=== PATIENT | male | born 1960 | race Caucasian/White ===

== ENCOUNTER 2016-07-22 15:46 | Inpatient (IN) | payer OTHER ==
[2016-07-22 15:55] VITALS: BMI 29.5
[2016-07-22 16:36] LABS: BASOPHIL 0.6 % (0-2.0); EOSINOPHIL 1.5 % (0-4.5); MCH 29.9 pg (25.7-33.7); MCHC 34.1 g/dl (32.0-35.9); MEAN CELL VOLUME 87.7 fl (80-96); MEAN PLT VOLUME 7.4 fl (7.5-11.1); NEUTROPHILS 69.5 % (42.8-82.8); PLATELET COUNT 196 K/MM3 (134-434); RDW 14.4 % (11.9-15.9); WHITE BLOOD COUNT 5.6 K/mm3 (4.0-10.0)
[2016-07-22 16:49] LABS: INR 1.09 (0.82-1.09)
[2016-07-22 16:51] LABS: ACTIVATED PTT 30.7 SECONDS (26.9-34.4)
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
[2016-07-22 17:11] LABS: ALBUMIN 3.7 g/dl (3.4-5.0); ANION GAP 11 (8-16); BILIRUBIN,TOTAL 0.6 mg/dL (0.2-1.0); CALCIUM 8.8 mg/dL (8.5-10.1); CO2 27 mmol/L (21-32); GLUCOSE,RANDOM 102 mg/dL (74-106); SGOT/AST 15 U/L (15-37); SGPT/ALT 34 U/L (12-78); TOT PROT 7.3 g/dl (6.4-8.2)
[2016-07-22 17:13] LABS: ALK PHOS 92 U/L (45-117); TROPONIN I < 0.02 ng/ml (0.00-0.05)
[2016-07-22 21:48] LABS: URINE APPEARANCE CLEAR; URINE BILIRUBIN NEGATIVE (NEGATIVE); URINE BLOOD NEGATIVE (NEGATIVE); URINE COLOR YELLOW; URINE GLUCOSE (UA) NEGATIVE (NEGATIVE); URINE KETONE TRACE (NEGATIVE); URINE LEUK ESTERASE NEGATIVE (NEGATIVE); URINE NITRITE NEGATIVE (NEGATIVE); URINE PROTEIN NEGATIVE (NEGATIVE); URINE UROBILINOGEN NEGATIVE E.U./dl (0.2-1.0)
[2016-07-22 22:03] LABS: URINE MARIJUANA THC NEGATIVE ng/ml (CUTOFF=50)
[2016-07-23] MEDS ORDERED: OXYCODONE/APAP 5/325MG COMBO TABLET PO PRN (00:08)
[2016-07-23] MEDS ORDERED: LORAZEPAM CARPU-JECT 2 MG/ML DISP.SYRIN IVPUSH PRN (00:18)
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
[2016-07-23] MEDS: oxyCODONE HCL 5 MG TABLET PO PRN ×3 (00:54→14:57)
[2016-07-23] MEDS: ACETAMINOPHEN 325 MG TABLET (FP) PO PRN ×2 (00:56→14:58)
[2016-07-23] MEDS: GABAPENTIN 100 MG CAPSULE (FP) PO SCH ×3 (06:15→21:21)
[2016-07-23 07:33] LABS: BASOPHIL 1.2 % (0-2.0); EOSINOPHIL 4.2 % (0-4.5); MCHC 34.3 g/dl (32.0-35.9); MEAN CELL VOLUME 87.4 fl (80-96); MEAN PLT VOLUME 7.2 fl (7.5-11.1); PLATELET COUNT 171 K/MM3 (134-434); RDW 14.4 % (11.9-15.9); WHITE BLOOD COUNT 4.1 K/mm3 (4.0-10.0)
[2016-07-23 07:54] LABS: ALBUMIN 3.5 g/dl (3.4-5.0); ANION GAP 7 (8-16); CHOLESTEROL 214 mg/dL (50-200); CO2 31 mmol/L (21-32); CREATININE 0.8 mg/dL (0.7-1.3); GLUCOSE,RANDOM 87 mg/dL (74-106); LDL CHOLESTEROL (ONLY SJRH) 156 mg/dL (5-100); MAGNESIUM 2.2 mg/dL (1.8-2.4); SGOT/AST 14 U/L (15-37); SGPT/ALT 30 U/L (12-78)
[2016-07-23 07:56] LABS: ALK PHOS 93 U/L (45-117); BILIRUBIN,TOTAL 0.6 mg/dL (0.2-1.0)
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
[2016-07-23 10:07] LABS: TROPONIN I < 0.02 ng/ml (0.00-0.05)
[2016-07-23] MEDS: OXcarbazepine 300 MG TABLET (UD) PO SCH ×2 (10:24→21:21)
[2016-07-23] MEDS: DIVALPROEX SODIUM 250 MG TABLET E.C. (FP) PO SCH ×2 (10:25→21:22)
[2016-07-23] MEDS: HEPARIN NA (PORCINE) 5,000 UNITS/ML 1ML VIAL SQ SCH ×2 (10:25→21:21)
--- NOTE | 2016-07-23 18:23 | EKG ---
Test Reason : Blood Pressure : / mmHG Vent. Rate : 078 BPM Atrial Rate : 078 BPM P-R Int : 174 ms QRS Dur : 080 ms QT Int : 376 ms P-R-T Axes : 033 -20 -05 degrees QTc Int : 428 ms NORMAL SINUS RHYTHM NORMAL ECG WHEN COMPARED WITH ECG OF 22-JUL-2016 16:06, NO SIGNIFICANT CHANGE WAS FOUND Confirmed by OSMAN ALVARADO MD ([id number]) on 07/23/2016 6:22:39 PM Referred By: Rogelio DOMÍNGUEZ Confirmed By:OSMAN ALVARADO MD
[2016-07-23] MEDS ORDERED: PT OWN MED DRAWER 7, Y5N ONE (21:04)
[2016-07-23] MEDS: MELATONIN 5 MG TABLETS PO SCH (21:22)
[2016-07-23] MEDS: oxyCODONE HCL 5 MG TABLET PO SCH (21:23)
[2016-07-23] MEDS ORDERED: oxyCODONE HCL 5 MG TABLET PO SCH (22:00)
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
[2016-07-24] MEDS: GABAPENTIN 100 MG CAPSULE (FP) PO SCH ×3 (05:04→21:10)
--- NOTE | 2016-07-24 08:28 | PN ---
Progress Note, Physician Chief Complaint: cp History of Present Illness: ongoing, fairly constant pain chest/neck/arm; worse if tries to sit up in bed/get out of bed; no acute sob, diaph no syncope - Current Medication List Current Medications: Active Medications Acetaminophen (Tylenol -) 325 mg PO BID PRN PRN Reason: PAIN Last Admin: 07/23/16 14:58 Dose: 325 mg Divalproex Sodium (Depakote -) 750 mg PO BID [facility] Last Admin: 07/23/16 21:22 Dose: 750 mg Gabapentin (Neurontin -) 200 mg PO TID [facility] Last Admin: 07/24/16 05:04 Dose: 200 mg Heparin Sodium (Porcine) (Heparin -) 5,000 unit SQ BID [facility] Last Admin: 07/23/16 21:21 Dose: 5,000 unit Melatonin (Melatonin) 10 mg PO HS [facility] Last Admin: 07/23/16 21:22 Dose: 10 mg Oxcarbazepine (Trileptal -) 900 mg PO BID [facility] Last Admin: 07/23/16 21:21 Dose: 900 mg Oxycodone HCl (Roxicodone -) 10 mg PO BID [facility] Last Admin: 07/23/16 21:23 Dose: 10 mg - Objective Vital Signs: Vital Signs Temperature 98.0 F 07/24/16 06:00 Pulse Rate 72 07/24/16 06:00 Respiratory Rate 20 07/24/16 06:00 Blood Pressure 115/84 07/24/16 06:00 O2 Sat by Pulse Oximetry (%) 97 07/23/16 21:00 Constitutional: Yes: No Distress, Calm Eyes: No: Sclera Icterus HENT: No: Nasal Congestion Cardiovascular: Yes: Regular Rate and Rhythm, S1, S2, Other (PMI non diplaced). No: Gallop, Murmur Respiratory: Yes: CTA Bilaterally. No: Accessory Muscle Use, Rales, Wheezes Gastrointestinal: Yes: Normal Bowel Sounds, Soft. No: Tenderness Musculoskeletal: Yes: Other (No kyphosis) Extremities: No: Cold Edema: No Integumentary: No: Jaundice Neurological: Yes: Alert, Oriented (x3) Psychiatric: No: Agitated Labs: CBC, BMP 07/23/16 06:05 07/23/16 06:05 INR, PTT INR 1.09 (0.82-1.09) 07/22/16 16:30 - ....Imaging EKG: Other (tele: NSR) Assessment/Plan chest pain, sob, diaphoresis: -nonexertional sx's x 48 hrs, now admits to positiona./use exacarbation -EKG here with no changes vs 2014 prior, and 2 serial troponins negative -CT images reviewed by me and there are no coronary calcifications present -ekg and troponins rules out acute plaque rupture; and if he had chronic, severe coronary stenosis at age 55 he would almost certainly have identifiable atherosclerotic calcifications on CT -therefore, strongly suspect m-skel strain sec to tonic-clonic sz's, or other m- skel etiology; -however also with episode of acute diaphoresis and sob sx's on DOA, strong family hx, abnl baseline ekg--persantine nuclear to r/o underlying CAD -echo -CTA negative for PE -VS's stable, sx's not suggestive of acute aorta pathology -mosaic interstitial pattern on CT ? c/w small airways dz vs hypersensitivity pneumonitis or --defer to dr soliman +/- pulm consult if indicated HPL: -LDL 156, not on statin -his ASCVD risk score is on the low side, though family history concerning -no identifiable coronary atherosclerotic calcifications on CT chest -notable family history present -defer discussion of R/B of primary prevn statin vs healthy lifestyle treatment to outpt f/u h/o PE: -1 provoked, 1 unprovoked -suspect hypercoagulable state -however in light of his neurologist feeling his uncontrolled tonic-clonic sz's represent prohibitive risk for head trauma on AC, would not change prior plan -pt and melba advised once his sz's are well controlled, i suggest they revisit hypercoag genetic testing and ? 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
[2016-07-24] MEDS: HEPARIN NA (PORCINE) 5,000 UNITS/ML 1ML VIAL SQ SCH ×2 (10:02→21:11)
[2016-07-24] MEDS: DIVALPROEX SODIUM 250 MG TABLET E.C. (FP) PO SCH ×2 (10:02→21:14)
[2016-07-24] MEDS: OXcarbazepine 300 MG TABLET (UD) PO SCH ×2 (10:03→21:14)
[2016-07-24] MEDS: oxyCODONE HCL 5 MG TABLET PO SCH ×2 (10:03→21:12)
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
[2016-07-24] MEDS ORDERED: PT OWN MED DRAWER 7, Y5N ONE (21:06)
[2016-07-24] MEDS: MELATONIN 5 MG TABLETS PO SCH (21:14)
[2016-07-24] MEDS ORDERED: LORAZEPAM CARPU-JECT 2 MG/ML DISP.SYRIN ONE (22:40)
[2016-07-24] MEDS ORDERED: LORAZEPAM CARPU-JECT 2 MG/ML DISP.SYRIN IVPUSH ONE ×2 (22:40→23:30)
[2016-07-24] MEDS ORDERED: VALPROATE SODIUM 500 MG/5 ML VIAL IVPB ONE (22:55)
--- NOTE | 2016-07-24 22:56 | RAPID ---
Physical Examination Vital Signs: Vital Signs Temperature 98.1 F 07/24/16 21:57 Pulse Rate 75 07/24/16 21:57 Respiratory Rate 20 07/24/16 21:57 Blood Pressure 147/93 07/24/16 21:57 O2 Sat by Pulse Oximetry (%) 96 07/24/16 19:38 Labs: CBC, BMP 07/23/16 06:05 07/23/16 06:05 Rapid Response - Rapid Response Assessment: Rapid response called for seizure. Seizure lasted for approximately 1 minute as was noted by at bedside. Upon arrival pt was still seizing and continued to seize for approximately 30 more seconds. Ativan 2mg IV was given and pt was no longer seizing. Pt was able to speak after seizing stopped and was in no acute distress s/p seizure. PE Gen: AAO, speaking in full sentences HEENT: NC/AT C/V: RRR, s1 s2 + Resp: CTA b/l, no wheezing Ext: no edema noted Neuro: following basic commands, lethargic s/p seizure and stat ativan A/P -Ativan 2mg IV stat ordered -CBCD, BMP, lactic acid ordered -Dr. Chance paged and called back immediately - increase depakote to 1000 po bid and to give one dose of iv depakote 250 mg at this time. Labs s/p seizure are as noted: CBC, BMP 07/24/16 22:30 07/24/16 23:00 Lactic Acid: 1.448
--- NOTE | 2016-07-24 22:57 | RAPID ---
Physical Examination Vital Signs: Vital Signs Temperature 98.1 F 07/24/16 21:57 Pulse Rate 75 07/24/16 21:57 Respiratory Rate 20 07/24/16 21:57 Blood Pressure 147/93 07/24/16 21:57 O2 Sat by Pulse Oximetry (%) 96 07/24/16 19:38 Findings/Remarks: Rapid Response called for Seizure [facility]. Actively seizing on arrival Vital Signs Period Temp Pulse Resp BP Sys/Cooper Pulse Ox Last 24 Hr 98.0 F-98.8 F 68-82 18-20 115-147/74-93 92-96 Ativan 2 given pt. stopped seizing Gen: Able to Speak full sentences Card: RRR S1, S2 RESP: CTAB ABD: BSX4 EXT: - C/C/E Neuro: CN II-XII intact, Able to follow commands A/P.) Sezure - Pt. had just recieved AED's 1 hr prior - Repeat labs - S/P Ativan - Dr. Chance contacted- Depakote 250 IV X1 given and Depakote increased 1000 PO BID changes made - Primary to be notified by nurse Labs: CBC, BMP 07/23/16 06:05 07/23/16 06:05
[2016-07-24 23:18] LABS: BASOPHIL 1.3 % (0-2.0); EOSINOPHIL 3.7 % (0-4.5); MCH 30.4 pg (25.7-33.7); MCHC 34.9 g/dl (32.0-35.9); MEAN PLT VOLUME 7.3 fl (7.5-11.1); NEUTROPHILS 52.6 % (42.8-82.8); PLATELET COUNT 186 K/MM3 (134-434); RDW 14.1 % (11.9-15.9); WHITE BLOOD COUNT 4.3 K/mm3 (4.0-10.0)
[2016-07-24 23:44] LABS: CALCIUM 8.6 mg/dL (8.5-10.1)
[2016-07-24] MEDS ORDERED: LORAZEPAM CARPU-JECT 2 MG/ML DISP.SYRIN IVPUSH PRN (23:55)
[2016-07-25] MEDS: GABAPENTIN 100 MG CAPSULE (FP) PO SCH ×3 (05:27→21:18)
[2016-07-25] MEDS ORDERED: PT OWN MED DRAWER 7, Y5N ONE ×2 (09:33→21:10)
[2016-07-25] MEDS: DIVALPROEX SODIUM 500 MG TABLET E.C. PO SCH ×2 (09:52→21:30)
[2016-07-25] MEDS: HEPARIN NA (PORCINE) 5,000 UNITS/ML 1ML VIAL SQ SCH ×2 (09:53→21:18)
[2016-07-25] MEDS: oxyCODONE HCL 5 MG TABLET PO SCH ×2 (09:53→21:21)
[2016-07-25] MEDS: OXcarbazepine 300 MG TABLET (UD) PO SCH ×2 (09:54→21:19)
--- NOTE | 2016-07-25 11:14 | PN ---
Progress Note, Physician Chief Complaint: cp History of Present Illness: had seizure overnight, currently lethargic s/p ativan as well no cp at the moment, no sob, no palpit, no wheezing - Current Medication List Current Medications: Active Medications Acetaminophen (Tylenol -) 325 mg PO BID PRN PRN Reason: PAIN Last Admin: 07/23/16 14:58 Dose: 325 mg Divalproex Sodium (Depakote -) 1,000 mg PO BID [facility] Last Admin: 07/25/16 09:52 Dose: 1,000 mg Gabapentin (Neurontin -) 200 mg PO TID [facility] Last Admin: 07/25/16 05:27 Dose: Not Given Heparin Sodium (Porcine) (Heparin -) 5,000 unit SQ BID [facility] Last Admin: 07/25/16 09:53 Dose: 5,000 unit Lorazepam (Ativan Injection -) 4 mg IVPUSH ONCE PRN PRN Reason: status epilepticus Melatonin (Melatonin) 10 mg PO HS [facility] Last Admin: 07/24/16 21:14 Dose: 10 mg Oxcarbazepine (Trileptal -) 900 mg PO BID [facility] Last Admin: 07/25/16 09:54 Dose: 900 mg Oxycodone HCl (Roxicodone -) 10 mg PO BID [facility] Last Admin: 07/25/16 09:53 Dose: 10 mg - Objective Vital Signs: Vital Signs Temperature 97.5 F L 07/25/16 06:00 Pulse Rate 64 07/25/16 06:00 Respiratory Rate 20 07/25/16 06:00 Blood Pressure 116/86 07/25/16 06:00 O2 Sat by Pulse Oximetry (%) 96 07/24/16 19:38 Constitutional: Yes: Well Nourished, No Distress, Calm Cardiovascular: Yes: Regular Rate and Rhythm, S1, S2. No: Gallop, Murmur Respiratory: Yes: Regular, CTA Bilaterally. No: Accessory Muscle Use, Rales, Wheezes Extremities: No: Cold Edema: No Neurological: Yes: Alert. No: Seizure Psychiatric: No: Agitated Labs: CBC, BMP 07/24/16 22:30 07/24/16 23:00 INR, PTT INR 1.09 (0.82-1.09) 07/22/16 16:30 - ....Imaging EKG: Other (tele: NSR) Assessment/Plan chest pain, sob, diaphoresis: -nonexertional sx's x 48 hrs, now admits to positiona./use exacarbation -EKG here with no changes vs 2014 prior, and 2 serial troponins negative -CT images reviewed by me and there are no coronary calcifications present -ekg and troponins rules out acute plaque rupture; and if he had chronic, severe coronary stenosis at age 55 he would almost certainly have identifiable atherosclerotic calcifications on CT -therefore, strongly suspect m-skel strain sec to tonic-clonic sz's, or other m- skel etiology; -however also with episode of acute diaphoresis and sob sx's on DOA, strong family hx, abnl baseline ekg -will do persantine nuclear to r/o underlying CAD once seizures are under control--note: given that his persistent cp x 48 hrs has clearly been shown not to represent ACS process, the nuclear stress test can be deferred for now -echo -CTA negative for PE -VS's stable, sx's not suggestive of acute aorta pathology -mosaic interstitial pattern on CT ? c/w small airways dz vs hypersensitivity pneumonitis or --defer to dr soliman +/- pulm consult if indicated HPL: -LDL 156, not on statin -his ASCVD risk score is on the low side, though family history concerning -no identifiable coronary atherosclerotic calcifications on CT chest -notable family history present -defer discussion of R/B of primary prevn statin vs healthy lifestyle treatment to outpt f/u h/o PE: -1 provoked, 1 unprovoked -suspect hypercoagulable state -however in light of his neurologist feeling his uncontrolled tonic-clonic sz's represent prohibitive risk for head trauma on AC, would not change prior plan -pt and melba advised once his sz's are well controlled, i suggest they revisit hypercoag genetic testing and ? 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
--- NOTE | 2016-07-25 12:40 | EKG ---
Test Reason : Blood Pressure : / mmHG Vent. Rate : 092 BPM Atrial Rate : 092 BPM P-R Int : 190 ms QRS Dur : 076 ms QT Int : 326 ms P-R-T Axes : 028 -22 -06 degrees QTc Int : 403 ms NORMAL SINUS RHYTHM NORMAL ECG WHEN COMPARED WITH ECG OF 27-JAN-2014 09:18, NO SIGNIFICANT CHANGE WAS FOUND Confirmed by POOJA JONES MD ([id number]) on 07/25/2016 12:40:09 PM Referred By: Confirmed By:POOJA JONES MD
[2016-07-25] MEDS ORDERED: LORAZEPAM CARPU-JECT 2 MG/ML DISP.SYRIN IVPUSH PRN (19:02)
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
--- NOTE | 2016-07-25 20:34 | PN ---
Progress Note (short form) - Note Progress Note: patient in room drowsy events of last night reviewed / patient sustained another seizure this afternoon and given ativan. reports chest pain now gone and less generalized pain off telemetry Vital Signs Period Temp Pulse Resp BP Sys/Cooper Pulse Ox Last 24 Hr 97.5 F-98.1 F 64-83 16-20 116-147/85-93 95 neck supple / no jvd heart reg S1/S2 lungs clear bilat abd soft non tender ext no edema / FROM Gait unsteady -- ?? medication induced will request PT evaluation medications adjusted by neuro recommendation from psych reviewed and will start Lexapro CBC, BMP 07/24/16 22:30 07/24/16 23:00 Active Medications Acetaminophen (Tylenol -) 325 mg PO BID PRN PRN Reason: PAIN Last Admin: 07/23/16 14:58 Dose: 325 mg Divalproex Sodium (Depakote -) 1,000 mg PO BID [facility] Last Admin: 07/25/16 09:52 Dose: 1,000 mg Escitalopram Oxalate (Lexapro -) 5 mg PO DAILY [facility] Gabapentin (Neurontin -) 200 mg PO TID [facility] Last Admin: 07/25/16 15:07 Dose: Not Given Heparin Sodium (Porcine) (Heparin -) 5,000 unit SQ BID [facility] Last Admin: 07/25/16 09:53 Dose: 5,000 unit Lacosamide (Vimpat -) 50 mg PO BID [facility] Lorazepam (Ativan Injection -) 1 mg IVPUSH ONCE PRN PRN Reason: status epilepticus Melatonin (Melatonin) 10 mg PO HS [facility] Last Admin: 07/24/16 21:14 Dose: 10 mg Oxcarbazepine (Trileptal -) 900 mg PO BID [facility] Last Admin: 07/25/16 09:54 Dose: 900 mg Oxycodone HCl (Roxicodone -) 10 mg PO BID [facility] Last Admin: 07/25/16 09:53 Dose: 10 mg ASSMT # PAIN BACK pain -- followed by Pain Mgmt / being re - evaluated for possible surgical approach Chest pain -- Now relieved which had persisted over 48hrs--all work up done has been Negative Will schedule Stress once seizure Dz controlled # Seizure DZ Uncontrolled - 2 events during hospital stay depakote increased and Vimpat added adjustment per Neurology # Depression appreciate psych input will start lexapro today # Hx of PE Partial work up to date -- due to seizure dz, a/c on hold -- will revisit once seizure dz is controlled # abnormal chest CT mosaic interstitial pattern on CT ? c/w small airways dz vs hypersensitivity pneumonitis will request Pulmonary opinion Problem List Problem List - Problems (1) Chest pain Code(s): R07.9 - CHEST PAIN, UNSPECIFIED Qualifiers: Chest pain type: unspecified Qualified Code(s): R07.9 - Chest pain, unspecified (2) Major depression Code(s): F32.9 - MAJOR DEPRESSIVE DISORDER, SINGLE EPISODE, UNSPECIFIED Qualifiers: Major depression recurrence: single episode Active/Remission status: currently active Major depression episode severity: moderate Qualified Code(s): F32.1 - Major depressive disorder, single episode, moderate (3) Seizure Code(s): R56.9 - UNSPECIFIED CONVULSIONS Qualifiers: Convulsion type: unspecified Qualified Code(s): R56.9 - Unspecified convulsions (4) Abnormal chest CT Code(s): R93.8 - ABNORMAL FINDINGS ON DIAGNOSTIC IMAGING OF BODY STRUCTURES
[2016-07-25] MEDS: ESCITALOPRAM OXALATE 10 MG TABLET (FP) PO SCH (21:18)
[2016-07-25] MEDS: LACOSAMIDE 50 MG TABLET PO SCH (21:19)
[2016-07-25] MEDS: MELATONIN 5 MG TABLETS PO SCH (21:20)
[2016-07-26] MEDS: GABAPENTIN 100 MG CAPSULE (FP) PO SCH ×3 (06:21→21:56)
[2016-07-26 08:33] LABS: BASOPHIL 0.8 % (0-2.0); EOSINOPHIL 3.9 % (0-4.5); MCHC 33.9 g/dl (32.0-35.9); MEAN CELL VOLUME 88.5 fl (80-96); MEAN PLT VOLUME 7.2 fl (7.5-11.1); NEUTROPHILS 54.8 % (42.8-82.8); PLATELET COUNT 164 K/MM3 (134-434); WHITE BLOOD COUNT 4.6 K/mm3 (4.0-10.0)
--- NOTE | 2016-07-26 09:19 | PN ---
Progress Note (short form) - Note Progress Note: Chief Complaint: cp S: no sob, cp, dizziness, no palpit, no wheezing. + word finding difficulties. Current Medications Acetaminophen (Tylenol -) 325 mg PO BID PRN PRN Reason: PAIN Last Admin: 07/23/16 14:58 Dose: 325 mg Divalproex Sodium (Depakote -) 1,000 mg PO BID [facility] Last Admin: 07/25/16 21:30 Dose: 1,000 mg Escitalopram Oxalate (Lexapro -) 5 mg PO DAILY [facility] Last Admin: 07/25/16 21:18 Dose: 5 mg Gabapentin (Neurontin -) 200 mg PO TID [facility] Last Admin: 07/26/16 06:21 Dose: 200 mg Heparin Sodium (Porcine) (Heparin -) 5,000 unit SQ BID [facility] Last Admin: 07/25/16 21:18 Dose: 5,000 unit Lacosamide (Vimpat -) 50 mg PO BID [facility] Last Admin: 07/25/16 21:19 Dose: 50 mg Lorazepam (Ativan Injection -) 1 mg IVPUSH ONCE PRN PRN Reason: status epilepticus Melatonin (Melatonin) 10 mg PO HS [facility] Last Admin: 07/25/16 21:20 Dose: 10 mg Oxcarbazepine (Trileptal -) 900 mg PO BID [facility] Last Admin: 07/25/16 21:19 Dose: 900 mg Oxycodone HCl (Roxicodone -) 10 mg PO BID [facility] Last Admin: 07/25/16 21:21 Dose: 10 mg Vital Signs - 24 hr 07/25/16 07/25/16 07/25/16 10:00 14:42 17:34 Temperature 97.6 F 98.1 F 97.5 F L Pulse Rate 72 83 69 Respiratory 18 16 18 Rate Blood Pressure 124/92 120/92 128/91 O2 Sat by Pulse Oximetry (%) 07/25/16 07/25/16 07/26/16 21:00 22:00 05:52 Temperature 97.9 F 97.6 F Pulse Rate 73 73 Respiratory 16 16 Rate Blood Pressure 128/92 127/78 O2 Sat by Pulse 94 L Oximetry (%) Intake & Output 07/24/16 07/25/16 07/26/16 07/27/16 07:59 07:59 07:59 07:59 Intake Total 258 425 3947 Balance 474 848 8207 Weight 210 lb 4 oz Constitutional: Yes: Well Nourished, No Distress, Calm Cardiovascular: Yes: Regular Rate and Rhythm, S1, S2. No: Gallop, Murmur Respiratory: Yes: Regular, CTA Bilaterally. No: Accessory Muscle Use, Rales, Wheezes Extremities: No: Cold Edema: No Neurological: Yes: Alert. No: Seizure Psychiatric: No: Agitated Labs: CBC, BMP 07/26/16 06:55 07/26/16 06:55 Laboratory Tests 07/26/16 06:55 Magnesium 2.2 - ....Imaging EKG: Other (prior tele: NSR) echo 06/2016: mild conc lvh. nl lv/rv size/fn. 1+ mr/tr, 1+ ao dilation. Assessment/Plan chest pain, sob, diaphoresis: -nonexertional sx's x 48 hrs, now admits to positiona./use exacarbation -EKG here with no changes vs 2014 prior, and 2 serial troponins negative -CT images reviewed by me and there are no coronary calcifications present -ekg and troponins rules out acute plaque rupture; and if he had chronic, severe coronary stenosis at age 55 he would almost certainly have identifiable atherosclerotic calcifications on CT -therefore, strongly suspect m-skel strain sec to tonic-clonic sz's, or other m- skel etiology; -however also with episode of acute diaphoresis and sob sx's on DOA, strong family hx, abnl baseline ekg -will do persantine nuclear to r/o underlying CAD once seizures are under control--note: given that his persistent cp x 48 hrs has clearly been shown not to represent ACS process, the nuclear stress test can be deferred for now -echo with mild concentric lvh, mild ao dilation c/w hx of hypertension. Patient with elevations in diastolic pressures here, but not known to have hypertension. Will add low dose chlorthalidone and monitor bp/k. -CTA negative for PE -VS's stable, sx's not suggestive of acute aorta pathology -mosaic interstitial pattern on CT ? c/w small airways dz vs hypersensitivity pneumonitis or --defer to dr soliman +/- pulm consult if indicated HPL: -LDL 156, not on statin -his ASCVD risk score is on the low side, though family history concerning -no identifiable coronary atherosclerotic calcifications on CT chest -notable family history present -defer discussion of R/B of primary prevn statin vs healthy lifestyle treatment to outpt f/u h/o PE: -1 provoked, 1 unprovoked -suspect hypercoagulable state -however in light of his neurologist feeling his uncontrolled tonic-clonic sz's represent prohibitive risk for head trauma on AC, would not change prior plan -pt and melba advised once his sz's are well controlled, i suggest they revisit hypercoag genetic testing and ? of lifelong AC with [employer] -cont sq heparin here as doing seizues: -per neuro oFF TELE
[2016-07-26] MEDS: DIVALPROEX SODIUM 500 MG TABLET E.C. PO SCH ×2 (09:21→21:57)
[2016-07-26] MEDS: oxyCODONE HCL 5 MG TABLET PO SCH ×2 (09:22→21:57)
[2016-07-26] MEDS: HEPARIN NA (PORCINE) 5,000 UNITS/ML 1ML VIAL SQ SCH ×2 (09:22→21:56)
[2016-07-26] MEDS: ESCITALOPRAM OXALATE 10 MG TABLET (FP) PO SCH (09:22)
[2016-07-26] MEDS: LACOSAMIDE 50 MG TABLET PO SCH ×2 (09:22→21:58)
[2016-07-26 10:02] LABS: CALCIUM 8.5 mg/dL (8.5-10.1); MAGNESIUM 2.2 mg/dL (1.8-2.4)
[2016-07-26] MEDS ORDERED: POTASSIUM CHLORIDE TABS 20 MEQ TABLET.ER (FP) PO ONE (10:31)
[2016-07-26] MEDS: OXcarbazepine 300 MG TABLET (UD) PO SCH ×2 (11:33→21:58)
[2016-07-26] MEDS: CHLORTHALIDONE 25 MG TABLET PO SCH (11:33)
--- NOTE | 2016-07-26 14:17 | CON.PULM ---
Consult Consult Specialty:: PULMONARY Referred by:: Dr. Hannah Reason for Consultation:: abnormal CT chest - History of Present Illness Chief Complaint: chest pain History of Present Illness: 55yo male with h/o HTN, seizure disorder, h/o DVT, pulmonary embolism x 2 not on anticoagulation due to his seizure disorder who was admitted with chest pain. CTA chest did not show any pulmonary emboli but did show interstitial changes and mosaic attenuation. He does report a nonproductive cough for the past 2 weeks. No fevers, chills or sweats. No unintentional weight loss. No leg swelling. He denies any history of asthma or COPD. 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 Denies any pets at home. Per his fiance, he is a loud snorer with multiple witnessed apneas at night. Awakes several times, gasping or choking. Does not feel rested in the AM and experiences excessive daytime somnolence. 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, Other (siezure) Cardio/Vascular: Yes: Other (DVT/PE) Rheumatology: Yes: Lupus (possible) - Alcohol/Substance Use Hx Alcohol Use: Yes (SOCIAL) History of Substance Use: reports: None - Smoking History Smoking history: Never smoked Have you smoked in the past 12 months: No - Social History Usual Living Arrangement: With Spouse ADL: Independent History of Recent Travel: No Home Medications - Allergies Allergies/Adverse Reactions: Allergies Allergy/AdvReac Type Severity Reaction Status Date / Time Penicillins Allergy Severe Difficulty Verified 01/27/14 09:26 Breathing - Home Medications Home Medications: Ambulatory Orders Divalproex [Depakote -] 750 mg PO BID 07/22/16 Gabapentin [Neurontin -] 200 mg PO TID 07/22/16 Oxcarbazepine [Trileptal -] 900 mg PO BID 07/22/16 Oxycodone HCl/Acetaminophen [Percocet 5-325 mg Tablet] 1 tab PO BID PRN Family Disease History - Family Disease History Family Disease History: Heart Disease: Father, Mother, Daughter Review of Systems - Review of Systems Constitutional: denies: Chills, Fever Eyes: denies: Recent Change in Vision HENT: denies: Nasal Congestion, Throat Pain Neck: denies: Stiffness, Tenderness Cardiovascular: reports: Shortness of Breath. denies: Chest Pain, Edema, Palpitations Respiratory: reports: Cough. denies: Hemoptysis, Wheezing Gastrointestinal: denies: Abdominal Pain, Nausea, Vomiting Genitourinary: denies: Dysuria, Hematuria Neurological: denies: Dizziness, Headache Endocrine: denies: Unexplained Weight Loss Physical Exam Vital Sings: Vital Signs Temperature 97.9 F 07/26/16 09:30 Pulse Rate 82 07/26/16 10:15 Respiratory Rate 18 07/26/16 09:30 Blood Pressure 113/85 07/26/16 09:30 O2 Sat by Pulse Oximetry (%) 95 07/26/16 10:15 Constitutional: Yes: Calm Eyes: Yes: Conjunctiva Clear, EOM Intact HENT: Yes: Atraumatic, Normocephalic Neck: Yes: Supple, Trachea Midline Cardiovascular: Yes: Regular Rate and Rhythm Respiratory: Yes: Diminished (distant breath sounds) ...Clubbing: No Gastrointestinal: Yes: Normal Bowel Sounds, Soft. No: Tenderness Edema: No Neurological: Yes: Alert, Oriented Labs: CBC, BMP 07/26/16 06:55 07/26/16 06:55 Imaging - Results Cat Scan: Report Reviewed, Image Reviewed (mild interstitial changes and mosaic attenuation) Problem List - Problems (1) Seizure Code(s): R56.9 - UNSPECIFIED CONVULSIONS Qualifiers: Convulsion type: unspecified Qualified Code(s): R56.9 - Unspecified convulsions (2) Chest pain Code(s): R07.9 - CHEST PAIN, UNSPECIFIED Qualifiers: Chest pain type: unspecified Qualified Code(s): R07.9 - Chest pain, unspecified (3) History of pulmonary embolism Code(s): Z86.711 - PERSONAL HISTORY OF PULMONARY EMBOLISM (4) Obstructive sleep apnea Code(s): G47.33 - OBSTRUCTIVE SLEEP APNEA (ADULT) (PEDIATRIC) Assessment/Plan - CT chest findings nonspecific and can be due to small airways disease, interstitial lung disease, mild overload - would repeat CT chest noncontrast as outpt in 6-8 weeks - outpt PFTs to rule out obstructive airways, assess lung volumes and diffusing capacity - will need outpt PSG as pt with symptoms of GRAYSON Thank you for this consult Jerry Tyler MD
[2016-07-26] MEDS: ACETAMINOPHEN 325 MG TABLET (FP) PO PRN (15:24)
[2016-07-26] MEDS ORDERED: PT OWN MED DRAWER 7, Y5N ONE (21:53)
[2016-07-26] MEDS: MELATONIN 5 MG TABLETS PO SCH (21:57)
--- NOTE | 2016-07-27 00:20 | PN ---
Progress Note (short form) - Note Progress Note: No seizure activity today / feeling "weak" and unsteady evaluated by PT today unstable gait No CP / SOB / Vital Signs Period Temp Pulse Resp BP Sys/Cooper Pulse Ox Last 24 Hr 97.6 F-98.4 F 70-92 16neck supple eart S1/S2-20 110-136/78-100 95-97 neck supple heart S1/S2 reg Lungs clear bilat Abd soft non tender ext no CCE + fine tremors UE CBC, BMP 07/26/16 06:55 07/26/16 06:55 Active Medications Acetaminophen (Tylenol -) 325 mg PO BID PRN PRN Reason: PAIN Last Admin: 07/26/16 15:24 Dose: 325 mg Chlorthalidone (Hygroton -) 12.5 mg PO DAILY [facility] Last Admin: 07/26/16 11:33 Dose: 12.5 mg Divalproex Sodium (Depakote -) 1,000 mg PO BID [facility] Last Admin: 07/26/16 21:57 Dose: 1,000 mg Escitalopram Oxalate (Lexapro -) 5 mg PO DAILY [facility] Last Admin: 07/26/16 09:22 Dose: 5 mg Gabapentin (Neurontin -) 200 mg PO TID [facility] Last Admin: 07/26/16 21:56 Dose: 200 mg Heparin Sodium (Porcine) (Heparin -) 5,000 unit SQ BID [facility] Last Admin: 07/26/16 21:56 Dose: 5,000 unit Lacosamide (Vimpat -) 50 mg PO BID [facility] Last Admin: 07/26/16 21:58 Dose: 50 mg Lorazepam (Ativan Injection -) 1 mg IVPUSH ONCE PRN PRN Reason: status epilepticus Melatonin (Melatonin) 10 mg PO HS [facility] Last Admin: 07/26/16 21:57 Dose: 10 mg Oxcarbazepine (Trileptal -) 900 mg PO BID [facility] Last Admin: 07/26/16 21:58 Dose: 900 mg Oxycodone HCl (Roxicodone -) 10 mg PO BID [facility] Last Admin: 07/26/16 21:57 Dose: 10 mg ASSMT # PAIN BACK pain -- followed by Pain Mgmt / being re - evaluated for possible surgical approach Chest pain -- Now relieved which had persisted over 48hrs--all work up done has been Negative Will schedule Stress once seizure Dz controlled # Seizure DZ Uncontrolled - 2 events during hospital stay depakote increased and Vimpat added adjustment per Neurology Unsteady gait / poor balance control ?? due to meds?? will require STR -- agreeable prefer [place] # Depression appreciate psych input lexapro started # Hx of PE Partial work up to date -- due to seizure dz, a/c on hold -- will revisit once seizure dz is controlled # abnormal chest CT mosaic interstitial pattern on CT ? c/w small airways dz vs hypersensitivity pneumonitis appreciate Pulmonary opinion -- will repeat CT as out patient Problem List - Problems (1) Chest pain Code(s): R07.9 - CHEST PAIN, UNSPECIFIED Qualifiers: Chest pain type: unspecified Qualified Code(s): R07.9 - Chest pain, unspecified (2) Major depression Code(s): F32.9 - MAJOR DEPRESSIVE DISORDER, SINGLE EPISODE, UNSPECIFIED Qualifiers: Major depression recurrence: single episode Active/Remission status: currently active Major depression episode severity: moderate Qualified Code(s): F32.1 - Major depressive disorder, single episode, moderate (3) Seizure Code(s): R56.9 - UNSPECIFIED CONVULSIONS Qualifiers: Convulsion type: unspecified Qualified Code(s): R56.9 - Unspecified convulsions (4) Abnormal chest CT Code(s): R93.8 - ABNORMAL FINDINGS ON DIAGNOSTIC IMAGING OF BODY STRUCTURES
[2016-07-27] MEDS: GABAPENTIN 100 MG CAPSULE (FP) PO SCH ×3 (05:35→21:10)
[2016-07-27] MEDS ORDERED: PT OWN MED DRAWER 7, Y5N ONE ×3 (08:52→20:35)
--- NOTE | 2016-07-27 10:08 | PN ---
Progress Note (short form) - Note Progress Note: S: no sob, dizziness, no palpit, no wheezing. last seizure was yesterday. still has same central chest pain Current Medications Generic Name Dose Route Start Last Admin Trade Name Chad PRN Reason Stop Dose Admin Acetaminophen 325 mg 07/23/16 00:24 07/26/16 15:24 Tylenol - PO 325 mg BID PRN Administration PAIN Chlorthalidone 12.5 mg 07/26/16 10:45 07/26/16 11:33 Hygroton - PO 12.5 mg DAILY LYDIA Administration Divalproex Sodium 1,000 mg 07/25/16 10:00 07/26/16 21:57 Depakote - PO 1,000 mg BID LYDIA Administration Escitalopram Oxalate 5 mg 07/25/16 20:30 07/26/16 09:22 Lexapro - PO 5 mg DAILY LYDIA Administration Gabapentin 200 mg 07/23/16 06:00 07/27/16 05:35 Neurontin - PO 200 mg TID LYDIA Administration Heparin Sodium (Porcine) 5,000 unit 07/23/16 10:00 07/26/16 21:56 Heparin - SQ 5,000 unit BID LYDIA Administration Lacosamide 50 mg 07/25/16 22:00 07/26/16 21:58 Vimpat - PO 50 mg BID LYDIA Administration Lorazepam 1 mg 07/25/16 19:02 Ativan Injection - IVPUSH ONCE PRN status epilepticus Melatonin 10 mg 07/23/16 22:00 07/26/16 21:57 Melatonin PO 10 mg HS LYDIA Administration Oxcarbazepine 900 mg 07/23/16 10:00 07/26/16 21:58 Trileptal - PO 900 mg BID LYDIA Administration Oxycodone HCl 10 mg 07/23/16 22:00 07/26/16 21:57 Roxicodone - PO 10 mg BID LYDIA Administration Vital Signs Period Temp Pulse Resp BP Sys/Cooper Pulse Ox Last 24 Hr 98 F-98.4 F 70-92 16-20 110-136/74-100 95-98 Constitutional: Yes: Well Nourished, No Distress, Calm Cardiovascular: Yes: Regular Rate and Rhythm, S1, S2. No: Gallop, Murmur Respiratory: Yes: Regular, CTA Bilaterally. No: Accessory Muscle Use, Rales, Wheezes Extremities: No: Cold Edema: No Neurological: Yes: Alert. No: Seizure Psychiatric: No: Agitated no jaundice diaphoresis CBC, BMP 07/26/16 06:55 07/27/16 05:42 echo 06/2016: mild conc lvh. nl lv/rv size/fn. 1+ mr/tr, 1+ ao dilation. Assessment/Plan chest pain, sob, diaphoresis: -atypical cp -EKG here with no changes vs 2014 prior, and 2 serial troponins negative -CT images reviewed and there are no coronary calcifications present -ekg and troponins rules out acute plaque rupture; and if he had chronic, severe coronary stenosis at age 55 he would almost certainly have identifiable atherosclerotic calcifications on CT -therefore, strongly suspect m-skel strain sec to tonic-clonic sz's, or other m- skel etiology; -however also with episode of acute diaphoresis and sob sx's on DOA, strong family hx, abnl baseline ekg -will do persantine nuclear to r/o underlying CAD once seizures are under control--note: given that his persistent cp x >48 hrs has clearly been shown not to represent ACS process, the nuclear stress test can be deferred for now -echo with mild concentric lvh, mild ao dilation c/w hx of hypertension. Patient with elevations in diastolic pressures here, but not known to have hypertension. Added low dose chlorthalidone here. -CTA negative for PE -VS's stable, sx's not suggestive of acute aorta pathology -mosaic interstitial pattern on CT ? c/w small airways dz vs hypersensitivity pneumonitis or --defer to dr soliman and pulm HPL: -LDL 156, not on statin -his ASCVD risk score is on the low side, though family history concerning -no identifiable coronary atherosclerotic calcifications on CT chest -notable family history present -defer discussion of R/B of primary prevn statin vs healthy lifestyle treatment to outpt f/u h/o PE: -1 provoked, 1 unprovoked -suspect hypercoagulable state -however in light of his neurologist feeling his uncontrolled tonic-clonic sz's represent prohibitive risk for head trauma on AC, would not change prior plan -pt and melba advised once his sz's are well controlled, i suggest they revisit hypercoag genetic testing and ? 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
[2016-07-27] MEDS: oxyCODONE HCL 5 MG TABLET PO SCH ×2 (10:20→21:10)
[2016-07-27] MEDS: DIVALPROEX SODIUM 500 MG TABLET E.C. PO SCH ×2 (10:21→21:10)
[2016-07-27] MEDS: LACOSAMIDE 50 MG TABLET PO SCH ×2 (10:21→21:10)
[2016-07-27] MEDS: ESCITALOPRAM OXALATE 10 MG TABLET (FP) PO SCH (10:21)
[2016-07-27] MEDS: CHLORTHALIDONE 25 MG TABLET PO SCH (10:21)
[2016-07-27] MEDS: HEPARIN NA (PORCINE) 5,000 UNITS/ML 1ML VIAL SQ SCH ×2 (10:23→21:09)
[2016-07-27] MEDS: OXcarbazepine 300 MG TABLET (UD) PO SCH ×2 (12:28→21:10)
--- NOTE | 2016-07-27 13:06 | PN ---
Progress Note, Physician History of Present Illness: PULMONARY ALERT,NAD,-SOB,CP,-SEIZURES - Current Medication List Current Medications: Active Medications Acetaminophen (Tylenol -) 325 mg PO BID PRN PRN Reason: PAIN Last Admin: 07/26/16 15:24 Dose: 325 mg Chlorthalidone (Hygroton -) 12.5 mg PO DAILY [facility] Last Admin: 07/27/16 10:21 Dose: 12.5 mg Divalproex Sodium (Depakote -) 1,000 mg PO BID [facility] Last Admin: 07/27/16 10:21 Dose: 1,000 mg Escitalopram Oxalate (Lexapro -) 5 mg PO DAILY [facility] Last Admin: 07/27/16 10:21 Dose: 5 mg Gabapentin (Neurontin -) 200 mg PO TID [facility] Last Admin: 07/27/16 05:35 Dose: 200 mg Heparin Sodium (Porcine) (Heparin -) 5,000 unit SQ BID [facility] Last Admin: 07/27/16 10:23 Dose: 5,000 unit Lacosamide (Vimpat -) 50 mg PO BID [facility] Last Admin: 07/27/16 10:21 Dose: 50 mg Lorazepam (Ativan Injection -) 1 mg IVPUSH ONCE PRN PRN Reason: status epilepticus Melatonin (Melatonin) 10 mg PO HS [facility] Last Admin: 07/26/16 21:57 Dose: 10 mg Oxcarbazepine (Trileptal -) 900 mg PO BID [facility] Last Admin: 07/27/16 12:28 Dose: 900 mg Oxycodone HCl (Roxicodone -) 10 mg PO BID [facility] Last Admin: 07/27/16 10:20 Dose: 10 mg - Objective Vital Signs: Vital Signs Temperature 97.8 F 07/27/16 10:00 Pulse Rate 83 07/27/16 10:00 Respiratory Rate 18 07/27/16 10:00 Blood Pressure 126/98 07/27/16 10:00 O2 Sat by Pulse Oximetry (%) 98 07/27/16 09:59 Constitutional: Yes: Well Nourished, Calm Eyes: Yes: WNL HENT: Yes: WNL Neck: Yes: WNL Cardiovascular: Yes: Regular Rate and Rhythm, S1, S2 Respiratory: Yes: CTA Bilaterally Gastrointestinal: Yes: Normal Bowel Sounds, Soft Extremities: Yes: WNL Edema: No Labs: CBC, BMP 07/26/16 06:55 07/27/16 05:42 INR, PTT INR 1.09 (0.82-1.09) 07/22/16 16:30 - ....Imaging Cat Scan: Report Reviewed, Image Reviewed Assessment/Plan Problem List - Problems (1) Seizure Code(s): R56.9 - UNSPECIFIED CONVULSIONS Qualifiers: Convulsion type: unspecified Qualified Code(s): R56.9 - Unspecified convulsions (2) Chest pain Code(s): R07.9 - CHEST PAIN, UNSPECIFIED Qualifiers: Chest pain type: unspecified Qualified Code(s): R07.9 - Chest pain, unspecified (3) History of pulmonary embolism Code(s): Z86.711 - PERSONAL HISTORY OF PULMONARY EMBOLISM (4) Obstructive sleep apnea Code(s): G47.33 - OBSTRUCTIVE SLEEP APNEA (ADULT) (PEDIATRIC) Assessment/Plan - CT chest findings nonspecific and can be due to small airways disease, interstitial lung disease, mild overload - CT chest noncontrast as outpt in 6-8 weeks - outpt PFTs to rule out obstructive airways, assess lung volumes and diffusing capacity - outpt PSG as pt with symptoms of GRAYSON DR CHANEY
--- NOTE | 2016-07-27 19:51 | PN ---
Progress Note, Physician History of Present Illness: no new seizures feels speech slurred with VIMPAT, though not clear if it would cause this at low dose - Current Medication List Current Medications: Active Medications Acetaminophen (Tylenol -) 325 mg PO BID PRN PRN Reason: PAIN Last Admin: 07/26/16 15:24 Dose: 325 mg Chlorthalidone (Hygroton -) 12.5 mg PO DAILY [facility] Last Admin: 07/27/16 10:21 Dose: 12.5 mg Divalproex Sodium (Depakote -) 1,000 mg PO BID [facility] Last Admin: 07/27/16 10:21 Dose: 1,000 mg Escitalopram Oxalate (Lexapro -) 5 mg PO DAILY [facility] Last Admin: 07/27/16 10:21 Dose: 5 mg Gabapentin (Neurontin -) 200 mg PO TID [facility] Last Admin: 07/27/16 14:24 Dose: 200 mg Heparin Sodium (Porcine) (Heparin -) 5,000 unit SQ BID [facility] Last Admin: 07/27/16 10:23 Dose: 5,000 unit Lacosamide (Vimpat -) 50 mg PO BID [facility] Last Admin: 07/27/16 10:21 Dose: 50 mg Lorazepam (Ativan Injection -) 1 mg IVPUSH ONCE PRN PRN Reason: status epilepticus Melatonin (Melatonin) 10 mg PO HS [facility] Last Admin: 07/26/16 21:57 Dose: 10 mg Oxcarbazepine (Trileptal -) 900 mg PO BID [facility] Last Admin: 07/27/16 12:28 Dose: 900 mg Oxycodone HCl (Roxicodone -) 10 mg PO BID [facility] Last Admin: 07/27/16 10:20 Dose: 10 mg - Objective Vital Signs: Vital Signs Temperature 99 F 07/27/16 18:35 Pulse Rate 70 07/27/16 18:35 Respiratory Rate 18 07/27/16 18:35 Blood Pressure 108/73 07/27/16 18:35 O2 Sat by Pulse Oximetry (%) 98 07/27/16 09:59 Neurological: Yes: Other (slight dysarthria, nonfocal rest exam) Labs: CBC, BMP 07/26/16 06:55 07/27/16 05:42 INR, PTT INR 1.09 (0.82-1.09) 07/22/16 16:30 Problem List - Problems (1) Seizure Code(s): R56.9 - UNSPECIFIED CONVULSIONS Qualifiers: Convulsion type: unspecified Qualified Code(s): R56.9 - Unspecified convulsions (2) Syncope Code(s): R55 - SYNCOPE AND COLLAPSE (3) Major depression Code(s): F32.9 - MAJOR DEPRESSIVE DISORDER, SINGLE EPISODE, UNSPECIFIED Qualifiers: Major depression recurrence: single episode Active/Remission status: currently active Major depression episode severity: moderate Qualified Code(s): F32.1 - Major depressive disorder, single episode, moderate Assessment/Plan HX of frontal lobe epilepsy, chronic traumatic brain injury presenting with possible flurry of breakthrough seizures, has been in three hospitals now ( [facility], [place] and [place] in last few weesk, outpt neuro Dr DAKOTAH PERRY-- in past thought to have non epileptic events as per prior neuro who has seen him ( seen by dr champion as well at [place]) 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
--- NOTE | 2016-07-27 20:33 | PN ---
Progress Note (short form) - Note Progress Note: seen and examined in his room unstable gait c/o of double vision was seen by PT - ambulating with use of walker and was only able to ambulate to doorway easily fatigued / still tearful Vital Signs Period Temp Pulse Resp BP Sys/Cooper Pulse Ox Last 24 Hr 97.8 F-99 F 65-83 16-20 108-130/73-98 96-98 neck - jvd heat reg lung clear abd soft non tender ext FROM no edema / CBC, BMP 07/26/16 06:55 07/27/16 05:42 Active Medications Acetaminophen (Tylenol -) 325 mg PO BID PRN PRN Reason: PAIN Last Admin: 07/26/16 15:24 Dose: 325 mg Chlorthalidone (Hygroton -) 12.5 mg PO DAILY [facility] Last Admin: 07/27/16 10:21 Dose: 12.5 mg Divalproex Sodium (Depakote -) 1,000 mg PO BID [facility] Last Admin: 07/27/16 10:21 Dose: 1,000 mg Escitalopram Oxalate (Lexapro -) 5 mg PO DAILY [facility] Last Admin: 07/27/16 10:21 Dose: 5 mg Gabapentin (Neurontin -) 200 mg PO TID [facility] Last Admin: 07/27/16 14:24 Dose: 200 mg Heparin Sodium (Porcine) (Heparin -) 5,000 unit SQ BID [facility] Last Admin: 07/27/16 10:23 Dose: 5,000 unit Lacosamide (Vimpat -) 50 mg PO BID [facility] Last Admin: 07/27/16 10:21 Dose: 50 mg Lorazepam (Ativan Injection -) 1 mg IVPUSH ONCE PRN PRN Reason: status epilepticus Melatonin (Melatonin) 10 mg PO HS [facility] Last Admin: 07/26/16 21:57 Dose: 10 mg Oxcarbazepine (Trileptal -) 900 mg PO BID [facility] Last Admin: 07/27/16 12:28 Dose: 900 mg Oxycodone HCl (Roxicodone -) 10 mg PO BID [facility] Last Admin: 07/27/16 10:20 Dose: 10 mg ASSMT # PAIN BACK pain -- followed by Pain Mgmt / being re - evaluated for possible surgical approach Chest pain -- Now relieved which had persisted over 48hrs--all work up done has been Negative Will schedule Stress once seizure Dz controlled # Seizure DZ Uncontrolled - 2 events during hospital stay depakote increased and Vimpat added adjustment per Neurology Unsteady gait / poor balance control ?? due to meds?? will require STR -- agreeable prefer [place] # Depression appreciate psych input lexapro started # Hx of PE Partial work up to date -- due to seizure dz, a/c on hold -- will revisit once seizure dz is controlled # abnormal chest CT mosaic interstitial pattern on CT ? c/w small airways dz vs hypersensitivity pneumonitis appreciate Pulmonary opinion -- will repeat CT as out patient Problem List - Problems (1) Seizure Code(s): R56.9 - UNSPECIFIED CONVULSIONS Qualifiers: Convulsion type: unspecified Qualified Code(s): R56.9 - Unspecified convulsions (2) Major depression Code(s): F32.9 - MAJOR DEPRESSIVE DISORDER, SINGLE EPISODE, UNSPECIFIED Qualifiers: Major depression recurrence: single episode Active/Remission status: currently active Major depression episode severity: moderate Qualified Code(s): F32.1 - Major depressive disorder, single episode, moderate (3) Abnormal chest CT Code(s): R93.8 - ABNORMAL FINDINGS ON DIAGNOSTIC IMAGING OF BODY STRUCTURES (4) Chest pain Code(s): R07.9 - CHEST PAIN, UNSPECIFIED Qualifiers: Chest pain type: unspecified Qualified Code(s): R07.9 - Chest pain, unspecified
[2016-07-27] MEDS: MELATONIN 5 MG TABLETS PO SCH (21:10)
[2016-07-28] MEDS: GABAPENTIN 100 MG CAPSULE (FP) PO SCH ×2 (05:29→15:31)
[2016-07-28 07:07] LABS: BASOPHIL 1.1 % (0-2.0); EOSINOPHIL 2.4 % (0-4.5); MCH 30.3 pg (25.7-33.7); MCHC 34.4 g/dl (32.0-35.9); MEAN PLT VOLUME 7.5 fl (7.5-11.1); NEUTROPHILS 58.1 % (42.8-82.8); PLATELET COUNT 160 K/MM3 (134-434); RDW 14.4 % (11.9-15.9); WHITE BLOOD COUNT 4.6 K/mm3 (4.0-10.0)
[2016-07-28 07:23] LABS: CALCIUM 8.9 mg/dL (8.5-10.1); MAGNESIUM 2.4 mg/dL (1.8-2.4)
[2016-07-28] MEDS ORDERED: PT OWN MED DRAWER 7, Y5N ONE (09:10)
--- NOTE | 2016-07-28 10:00 | PN ---
Progress Note (short form) - Note Progress Note: S: no sob, dizziness, no palpit, no wheezing. no seizure overnight. cp has improved Current Medications Generic Name Dose Route Start Last Admin Trade Name Chad PRN Reason Stop Dose Admin Acetaminophen 325 mg 07/23/16 00:24 07/26/16 15:24 Tylenol - PO 325 mg BID PRN Administration PAIN Chlorthalidone 12.5 mg 07/26/16 10:45 07/27/16 10:21 Hygroton - PO 12.5 mg DAILY LYDIA Administration Divalproex Sodium 1,000 mg 07/25/16 10:00 07/27/16 21:10 Depakote - PO 1,000 mg BID LYDIA Administration Escitalopram Oxalate 5 mg 07/25/16 20:30 07/27/16 10:21 Lexapro - PO 5 mg DAILY LYDIA Administration Gabapentin 200 mg 07/23/16 06:00 07/28/16 05:29 Neurontin - PO 200 mg TID LYDIA Administration Heparin Sodium (Porcine) 5,000 unit 07/23/16 10:00 07/27/16 21:09 Heparin - SQ 5,000 unit BID LYDIA Administration Lacosamide 50 mg 07/25/16 22:00 07/27/16 21:10 Vimpat - PO 50 mg BID LYDIA Administration Lorazepam 1 mg 07/25/16 19:02 Ativan Injection - IVPUSH ONCE PRN status epilepticus Melatonin 10 mg 07/23/16 22:00 07/27/16 21:10 Melatonin PO 10 mg HS LYDIA Administration Oxcarbazepine 900 mg 07/23/16 10:00 07/27/16 21:10 Trileptal - PO 900 mg BID LYDIA Administration Oxycodone HCl 10 mg 07/23/16 22:00 07/27/16 21:10 Roxicodone - PO 10 mg BID LYDIA Administration Vital Signs Period Temp Pulse Resp BP Sys/Cooper Pulse Ox Last 24 Hr 97.6 F-99 F 65-84 16-20 108-136/73-98 98 Constitutional: Yes: Well Nourished, No Distress, Calm Cardiovascular: Yes: Regular Rate and Rhythm, S1, S2. No: Gallop, Murmur Respiratory: Yes: Regular, CTA Bilaterally. No: Accessory Muscle Use, Rales, Wheezes Extremities: No: Cold Edema: No Neurological: Yes: Alert. No: Seizure Psychiatric: No: Agitated no jaundice diaphoresis CBC, BMP 07/28/16 06:00 07/28/16 06:00 echo 06/2016: mild conc lvh. nl lv/rv size/fn. 1+ mr/tr, 1+ ao dilation. Assessment/Plan chest pain, sob, diaphoresis: -atypical cp -EKG here with no changes vs 2014 prior, and 2 serial troponins negative -CT images reviewed and there are no coronary calcifications present -ekg and troponins rules out acute plaque rupture; and if he had chronic, severe coronary stenosis at age 55 he would almost certainly have identifiable atherosclerotic calcifications on CT -therefore, strongly suspect m-skel strain sec to tonic-clonic sz's, or other m- skel etiology; -however also with episode of acute diaphoresis and sob sx's on DOA, strong family hx, abnl baseline ekg -will do persantine nuclear to r/o underlying CAD once seizures are under control--note: given that his persistent cp x >48 hrs has clearly been shown not to represent ACS process, the nuclear stress test can be deferred for now, can be done as outpt -echo with mild concentric lvh, mild ao dilation c/w hx of hypertension. Patient with elevations in diastolic pressures here, but not known to have hypertension. Added low dose chlorthalidone here. -CTA negative for PE -VS's stable, sx's not suggestive of acute aorta pathology -mosaic interstitial pattern on CT ? c/w small airways dz vs hypersensitivity pneumonitis or --defer to dr soliman and pulm HPL: -LDL 156, not on statin -his ASCVD risk score is on the low side, though family history concerning -no identifiable coronary atherosclerotic calcifications on CT chest -notable family history present -defer discussion of R/B of primary prevn statin vs healthy lifestyle treatment to outpt f/u h/o PE: -1 provoked, 1 unprovoked -suspect hypercoagulable state -however in light of his neurologist feeling his uncontrolled tonic-clonic sz's represent prohibitive risk for head trauma on AC, would not change prior plan -pt and melba advised once his sz's are well controlled, i suggest they revisit hypercoag genetic testing and ? 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
[2016-07-28] MEDS: ESCITALOPRAM OXALATE 10 MG TABLET (FP) PO SCH (10:08)
[2016-07-28] MEDS: CHLORTHALIDONE 25 MG TABLET PO SCH (10:09)
[2016-07-28] MEDS: HEPARIN NA (PORCINE) 5,000 UNITS/ML 1ML VIAL SQ SCH (10:10)
[2016-07-28] MEDS: oxyCODONE HCL 5 MG TABLET PO SCH (10:10)
[2016-07-28] MEDS: DIVALPROEX SODIUM 500 MG TABLET E.C. PO SCH (10:10)
[2016-07-28] MEDS: OXcarbazepine 300 MG TABLET (UD) PO SCH (10:11)
[2016-07-28] MEDS: LACOSAMIDE 50 MG TABLET PO SCH (10:12)
--- NOTE | 2016-07-28 13:45 | PN ---
Progress Note (short form) - Note Progress Note: PULMONARY Denies shortness of breath or chest pain. Last Vital Signs Temp Pulse Resp BP Pulse Ox 98.0 F 75 20 122/84 94 L 07/28/16 10:00 07/28/16 10:00 07/28/16 10:00 07/28/16 10:00 07/28/16 10:00 Gen: NAD at rest Heart: RRR Lung: decreased breath sounds at the bases Abd: soft, nontener Ext: no edema CBC, BMP 07/28/16 06:00 07/28/16 06:00 Active Medications Acetaminophen (Tylenol -) 325 mg PO BID PRN PRN Reason: PAIN Last Admin: 07/26/16 15:24 Dose: 325 mg Chlorthalidone (Hygroton -) 12.5 mg PO DAILY [facility] Last Admin: 07/28/16 10:09 Dose: 12.5 mg Divalproex Sodium (Depakote -) 1,000 mg PO BID [facility] Last Admin: 07/28/16 10:10 Dose: 1,000 mg Escitalopram Oxalate (Lexapro -) 5 mg PO DAILY [facility] Last Admin: 07/28/16 10:08 Dose: 5 mg Gabapentin (Neurontin -) 200 mg PO TID [facility] Last Admin: 07/28/16 05:29 Dose: 200 mg Heparin Sodium (Porcine) (Heparin -) 5,000 unit SQ BID [facility] Last Admin: 07/28/16 10:10 Dose: 5,000 unit Lacosamide (Vimpat -) 50 mg PO BID [facility] Last Admin: 07/28/16 10:12 Dose: 50 mg Lorazepam (Ativan Injection -) 1 mg IVPUSH ONCE PRN PRN Reason: status epilepticus Melatonin (Melatonin) 10 mg PO HS [facility] Last Admin: 07/27/16 21:10 Dose: 10 mg Oxcarbazepine (Trileptal -) 900 mg PO BID [facility] Last Admin: 07/28/16 10:11 Dose: 900 mg Oxycodone HCl (Roxicodone -) 10 mg PO BID [facility] Last Admin: 07/28/16 10:10 Dose: 10 mg A/P Breakthrough Seizure Likely GRAYSON h/o PE Chest Pain - CT chest findings nonspecific and can be due to small airways disease, interstitial lung disease, mild overload - would repeat CT chest noncontrast as outpt in 6-8 weeks - outpt PFTs to rule out obstructive airways, assess lung volumes and diffusing capacity - will need outpt PSG as pt with symptoms of GRAYSON Problem List - Problems (1) Seizure Code(s): R56.9 - UNSPECIFIED CONVULSIONS Qualifiers: Convulsion type: unspecified Qualified Code(s): R56.9 - Unspecified convulsions (2) Chest pain Code(s): R07.9 - CHEST PAIN, UNSPECIFIED Qualifiers: Chest pain type: unspecified Qualified Code(s): R07.9 - Chest pain, unspecified (3) History of pulmonary embolism Code(s): Z86.711 - PERSONAL HISTORY OF PULMONARY EMBOLISM (4) Obstructive sleep apnea Code(s): G47.33 - OBSTRUCTIVE SLEEP APNEA (ADULT) (PEDIATRIC)
[2016-07-28 15:08] VITALS: BP 117/98; PULSE 94; TEMP 97.7
== END 2016-07-28 17:25 | DRG 53 ==
LOC: JER 15:46 → JERBED 19:30 → J4S 23:25
PROVIDERS: ADMIT Family Medicine; ATTEND Family Medicine
DX: R56.9 Unspecified convulsions (principal); F32.9 Major depressive disorder, single episode, unspecified; R07.89 Other chest pain; G47.33 Obstructive sleep apnea (adult) (pediatric); R55 Syncope and collapse; M47.897 Other spondylosis, lumbosacral region; M54.17 Radiculopathy, lumbosacral region; R93.8 Abnormal findings on diagnostic imaging of other specified body structures; M54.89 Other dorsalgia; I10 Essential (primary) hypertension; Z86.718 Personal history of other venous thrombosis and embolism; Z86.711 Personal history of pulmonary embolism; Z88.0 Allergy status to penicillin
CPT/HCPCS: 36415; 70450-TC; 71010-TC; 71275-TC; 80048; 80053; 80061; 80164; 80183; 80307; 81003; 82550; 83605; 83721; 83735; 84484; 85025; 85379; 85610; 85730; 93005; 93010; 93306-TC; 95816; 97116-GP; 97161; 99285-25; J1644